=== PATIENT | female | born 1950 | race Caucasian/White ===

== ENCOUNTER → 2020-03-10 12:56 | Outpatient (BNV) | payer MEDICARE, SELFPAY | PROVIDERS: PCP Internal Medicine; Visit Provider Internal Medicine | DX: C50.911 Malignant neoplasm of unspecified site of right female breast (principal) | CPT/HCPCS: 99213; 99214 ==

== ENCOUNTER 2023-06-05 08:33 | Day surgery (SDC) | payer MEDICARE, SELFPAY ==
--- NOTE | 2023-06-04 10:18 | P.CONAN_ITS ---
HPI - Anesthesia Eval Consult details Narrative: 72yo F for Colonoscopy PMFSH Active Problems Active Problems: All Active Problems (Updated 01/02/23 @ 11:44 by Mobile-XL MD) Breast cancer, right (Chronic) Past Medical History Medical History (Updated 01/02/23 @ 11:44 by Mobile-XL MD) Seroma Bilateral breast cancer Kidney stones Depression Anxiety Hypercholesterolemia HTN (hypertension) Arthritis Obesity Family History Family History Sister DCIS (ductal carcinoma in situ) Uterine cancer Mother Diabetes Dementia Father Diabetes Bladder cancer Maternal Grandmother Breast cancer Sister Suicide Surgical History Surgical History Hx of cholecystectomy Status post left breast reconstruction H/O bilateral mastectomy H/O bilateral hip replacements Social History Social History Household Members: None [facility]: [facility] Are you a primary health care marketing specialist to a significant other at home: No Do you presently have visiting nurse or other home services: No Alcohol intake: current Alcohol intake frequency: a few times a month Alcohol type: wine Patient Tobacco Use Status: Never used Tobacco service: No Current occupational status: retired [employer] Allergies Allergy/AdvReac Type Severity Reaction Status Date / Time lisinopril [From ZESTRIL] Allergy Mild COUGH Unverified 10/03/22 13:19 Home Medications Medication Instructions Recorded Confirmed Last Taken Type cholecalciferol (vitamin D3) 50 50 mcg PO DAILY 03/10/20 10/03/22 Unknown History mcg (2,000 unit) capsule (Vitamin D3) hydrochlorothiazide 12.5 mg tablet 1 tab PO DAILY 03/10/20 10/03/22 Unknown History multivitamin 1 tab PO DAILY 03/10/20 10/03/22 Unknown History ascorbic acid (vitamin C) 500 mg 500 mg PO DAILY 09/21/20 10/03/22 Unknown History tablet (Vitamin C) escitalopram oxalate 5 mg tablet 5 mg PO DAILY 09/21/21 10/03/22 Unknown History (Lexapro) valsartan 160 mg tablet 160 mg PO DAILY 10/03/22 10/03/22 Unknown History Assessment and Plan Assessment Anesthesia Assessment: Chart Reviewed
[2023-06-05 09:12] VITALS: BMI 38.3
[2023-06-05 09:15] VITALS: BP 141/81; PULSE 81; RESP 18; TEMP 36.2; O2SAT 98
[2023-06-05 09:28] VITALS: BMI 38.3
[2023-06-05] MEDS: Lactated Ringers 1,000 ML 100 ML IVCONT (09:43)
--- NOTE | 2023-06-05 09:48 | P.CONAN_ITS ---
[facility] Active Problems Active Problems: All Active Problems (Updated 01/02/23 @ 11:44 by H2scan) Breast cancer, right (Chronic) Past Medical History Medical History (Updated 01/02/23 @ 11:44 by H2scan) Seroma Bilateral breast cancer Kidney stones Depression Anxiety Hypercholesterolemia HTN (hypertension) Arthritis Obesity Family History Family History Sister DCIS (ductal carcinoma in situ) Uterine cancer Mother Diabetes Dementia Father Diabetes Bladder cancer Maternal Grandmother Breast cancer Sister Suicide Family history of problems with anesthesia: No Surgical History Surgical History Hx of cholecystectomy Status post left breast reconstruction H/O bilateral mastectomy H/O bilateral hip replacements History of Problems with Anesthesia: No Social History Social History Household Members: None Housing: Condominium Are you a primary resident caregiver to a significant other at home: No Do you presently have visiting nurse or other home services: No Alcohol intake: current Alcohol intake frequency: a few times a month Alcohol type: wine Patient Tobacco Use Status: Never used Tobacco Use of substances other than those prescribed or required for medical reasons: No Are you DNR?: No Advance Directives: No Advance Directives Information Provided: Yes service: No Current occupational status: retired [employer] Allergies Allergy/AdvReac Type Severity Reaction Status Date / Time lisinopril [From ZESTRIL] Allergy Mild COUGH Verified 06/05/23 09:42 Active Medications: Current Medications Lactated Ringer's (Lr) 1,000 mls @ 100 mls/hr IVCONT .Q10H HALLIE Last Admin: 06/05/23 09:43 Dose: 100 mls/hr Ondansetron HCl (Ondansetron Hcl 4 Mg/2 Ml Vial) 4 mg IVPUSH ONCE PRN PRN Reason: Nausea and Vomiting Home Medications Medication Instructions Recorded Confirmed Last Taken Type cholecalciferol (vitamin D3) 50 50 mcg PO DAILY 03/10/20 06/05/23 Unknown History mcg (2,000 unit) capsule (Vitamin D3) hydrochlorothiazide 12.5 mg tablet 1 tab PO DAILY 03/10/20 06/05/23 Unknown History multivitamin 1 tab PO DAILY 03/10/20 06/05/23 Unknown History ascorbic acid (vitamin C) 500 mg 500 mg PO DAILY 09/21/20 06/05/23 Unknown History tablet (Vitamin C) escitalopram oxalate 5 mg tablet 5 mg PO DAILY 09/21/21 06/05/23 Unknown History (Lexapro) valsartan 160 mg tablet 160 mg PO DAILY 10/03/22 06/05/23 06/05/23 History Exam Height,Weight and Vital Signs: Height 5 ft 6 in Weight 107.59 kg Last Vital Signs Temp 97.2 F 06/05/23 09:15 Pulse 81 06/05/23 09:15 Resp 18 06/05/23 09:15 BP 141/81 H 06/05/23 09:15 Pulse Ox 98 06/05/23 09:15 O2 Del Method Room Air 06/05/23 09:15 Airway Mallampati Class: III TM Dist: >3cm Neck ROM: Full Heart: rrr Lungs: clear Assessment and Plan Final Anesthetic Review Family History of Problems with Anesthesia: No History of Problems with Anesthesia: No NPO: Yes ASA Class: II Final Preanesthetic Review: No Changes in Pt Med Stat, Meds/Allgs Chart Reviewed, Consent Obtained/Reviewed and Anes Risks/Benef Reviewed Patient Risk: Intermediate Procedure Risk: Low Anesthetic Plan Anesthetic Plan: MAC: Disposition: Standard PACU
--- NOTE | 2023-06-05 09:53 | MHC.SHP ---
Pre-Procedural Eval Section A - 24 Hr Update-Section A only Date of Service: 06/05/23 Section B - Complete if H&P > 30 days Chief Complaint: Encounter for screening for malignant neoplasm of Details of Present Illness: see H&P no changes Relevant Family History (Specify if Yes): No Relevant Social History: None Present Medications: see Short Stay Collaborative assessment Medical History: No relevant PMH History of Previous Operations: No relevant previous surgery Allergies: Allergies Allergy/AdvReac Type Severity Reaction Status Date / Time lisinopril [From ZESTRIL] Allergy Mild COUGH Verified 06/05/23 09:42 Review of Systems Sugical H&P ROS: Negative: Constitution, Cardiovascular, Respiratory, Neurological, Psychiatric, Hem-Onc, Allergic/Immunologic, Gastrointestinal, Genitourinary, Musculoskeletal, Integumentary, Endocrine and Eyes/Ears/Nose/Throat Exam Surgical H&P Exam: Normal: HEENT, Normal: Heart, Normal: Lungs, Normal: Extremities, Normal: Abdomen, Normal: Skin and Normal: Neurological Plan Diagnosis/Plan: Unchanged I have reviewed the history and physical and performed a pertinent physical examination on my patient. No changes have occurred unless specified. Time Spent With Patient Time: Total time managing care of this patient today ____ minutes.
[2023-06-05 10:38] VITALS: BP 100/54; PULSE 85; RESP 18; TEMP 36.1; O2SAT 96
--- NOTE | 2023-06-05 10:50 | OP_ITS ---
DATE OF SERVICE: 06/05/2023 SURGEON: Maurilio Garcia MD INDICATIONS: Colon cancer screening. PREOPERATIVE DIAGNOSIS: POSTOPERATIVE DIAGNOSIS: PROCEDURE PERFORMED: Colonoscopy to the terminal ileum with biopsy and snare polypectomy. ESTIMATED BLOOD LOSS: COMPLICATIONS: ANESTHESIA: Monitored anesthesia care. ASSISTANTS: SPECIMENS: DESCRIPTION OF PROCEDURE: A history and physical was performed. The risks and benefits of the procedure were explained to the patient. Informed consent was obtained. The patient was placed in the left lateral decubitus position. A digital rectal exam was performed and was found to be normal. The Olympus pediatric video colonoscope was introduced into the rectum and advanced to the cecum. The cecum was identified by transillumination, palpation, and identification of ileocecal valve. Examination was performed. The scope was removed. She tolerated the procedure well and was returned to recovery area in stable condition. FINDINGS: The terminal ileum was examined and appeared normal. The visualized colonic mucosa was normal. The quality of prep was good. Two polyps were identified. The 1st measured less than 5 mm and was removed with biopsy forceps located at 20 cm. The 2nd was located at 15 cm and measured 7 mm. This was removed with a hot snare. No other polyps were identified. Retroflexed examination showed some small internal hemorrhoids. IMPRESSION: Colon polyps. RECOMMENDATION: Follow up biopsy results. MD ADELE Garcia/FIORELLA / [id number]
[2023-06-05 10:53] VITALS: BP 122/64; PULSE 90; RESP 18; TEMP 36.1; O2SAT 98
== END 2023-06-05 11:32 | disposition home or self-care (01) ==
PROVIDERS: PCP Internal Medicine; Visit Provider Internal Medicine Gastroenterology
PROC: 0DJD8ZZ Inspection of Lower Intestinal Tract, Via Natural or Artificial Opening Endoscopic (ICD-10-PCS; CPT 45378; principal; 2023-06-05 09:50)
DX: Z12.11 Encounter for screening for malignant neoplasm of colon (principal); D12.7 Benign neoplasm of rectosigmoid junction; K63.5 Polyp of colon; K64.8 Other hemorrhoids; K58.0 Irritable bowel syndrome with diarrhea; I10 Essential (primary) hypertension; E78.5 Hyperlipidemia, unspecified; M19.90 Unspecified osteoarthritis, unspecified site; F41.8 Other specified anxiety disorders; Z85.3 Personal history of malignant neoplasm of breast; Z92.3 Personal history of irradiation; Z90.13 Acquired absence of bilateral breasts and nipples; Z98.82 Breast implant status; Z88.8 Allergy status to other drugs, medicaments and biological substances; Z79.899 Other long term (current) drug therapy; Z90.49 Acquired absence of other specified parts of digestive tract
CPT/HCPCS: 45385; 45380; 88305; J2704